=== PATIENT | male | born 1995 | race Two or more races ===

== ENCOUNTER 2024-03-19 16:03 | Emergency (ER) | payer MEDICAID ==
[~2024-03-19] VITALS: Ht 177.8 cm; Wt 65.8 kg
[2024-03-19 16:16] VITALS: TEMP 98
[2024-03-19] MEDS ORDERED: LIDOCAINE 1%-EPI 1:100,000 20 ML VIAL ONE (16:52)
[2024-03-19] MEDS ORDERED: TDAP [DIPH/PERTUSSIS/TET] 0.5 ML VIAL IM ONE (16:57)
[2024-03-19] MEDS: TDAP [DIPH/PERTUSSIS/TET] 0.5 ML VIAL IM ONE (16:59)
[2024-03-19 17:27] VITALS: BP 134/82; O2SAT 99
== END 2024-03-19 17:27 | disposition home or self-care (01) ==
LOC: ER 16:13
DX: S01.01XA Laceration without foreign body of scalp, initial encounter (principal); W01.0XXA Fall on same level from slipping, tripping and stumbling without subsequent striking against object, initial encounter; Y93.89 Activity, other specified; Y92.480 Sidewalk as the place of occurrence of the external cause; Y99.8 Other external cause status
CPT/HCPCS: 12002; 90471; 90715; 99283; J3490